=== PATIENT | male | born 1980 | race African-American/Black ===

== ENCOUNTER 2019-04-17 15:40 | Emergency (ER) | payer MEDICARE, OTHER ==
[~2019-04-17] VITALS: Ht 177.8 cm; Wt 150.0 kg
[2019-04-17] MEDS ORDERED: HYDROCODONE/ACETAMINOPHEN 5/325MG TABLET PO ONE (18:00)
[2019-04-17] MEDS ORDERED: IBUPROFEN 600MG TABLET PO ONE (18:00)
[2019-04-17 19:37] VITALS: BP 159/84
== END 2019-04-17 20:30 | disposition home or self-care (01) ==
LOC: ER 15:40
DX: M25.562 Pain in left knee (principal); I10 Essential (primary) hypertension; F20.9 Schizophrenia, unspecified; Z86.718 Personal history of other venous thrombosis and embolism; Z98.890 Other specified postprocedural states
CPT/HCPCS: 73502; 73560; 93970; 99284

== ENCOUNTER 2019-06-07 15:00 | Emergency (ER) | payer MEDICARE, OTHER ==
[~2019-06-07] VITALS: Ht 167.6 cm; Wt 98.0 kg
[2019-06-07] MEDS ORDERED: BACITRACIN ZINC OINT UDPKT TOP ONE (15:30)
[2019-06-07 17:14] VITALS: BP 183/82
== END 2019-06-07 18:53 | disposition home or self-care (01) ==
LOC: ER 15:29
DX: L97.829 Non-pressure chronic ulcer of other part of left lower leg with unspecified severity (principal); I10 Essential (primary) hypertension; Z86.718 Personal history of other venous thrombosis and embolism; Z96.659 Presence of unspecified artificial knee joint
CPT/HCPCS: 99283

== ENCOUNTER 2021-11-27 10:20 | Emergency (ER) | payer MEDICARE, MEDICAID ==
[~2021-11-27] VITALS: Ht 177.8 cm; Wt 100.0 kg
[2021-11-27 12:03] LABS: CLARITY URINE CLEAR (CLEAR); COLOR URINE DARK YELLOW (YELLOW); KETONES URINE TRACE (NEGATIVE); LEUKOCYTE ESTERASE URINE 2+ (NEGATIVE); NITRITE URINE NEGATIVE (NEGATIVE); OCCULT BLOOD URINE TRACE (NEGATIVE); PH URINE 5.5 (4.5-8.0); PROTEIN URINE 1+ (NEGATIVE); SPECIFIC GRAVITY URINE 1.023 (1.005-1.030)
[2021-11-27 12:24] VITALS: BP 122/57
[2021-11-27] MEDS ORDERED: LEVO250T43 PO (12:28)
[2021-11-27] MEDS ORDERED: LEVOFLOXACIN 250MG TABLET PO ONE (12:30)
== END 2021-11-27 13:08 | disposition home or self-care (01) ==
LOC: ER 10:20
DX: N39.0 Urinary tract infection, site not specified (principal); I10 Essential (primary) hypertension; F20.9 Schizophrenia, unspecified; Z86.718 Personal history of other venous thrombosis and embolism; Z96.659 Presence of unspecified artificial knee joint; Z79.01 Long term (current) use of anticoagulants
CPT/HCPCS: 76770; 81003; 99284

== ENCOUNTER 2022-07-13 19:50 | Emergency (ER) | payer MEDICARE, MEDICAID ==
[~2022-07-13] VITALS: Ht 177.8 cm; Wt 110.0 kg
[~2022-07-13 19:50] MED LIST: LEVO250T74 PO
[2022-07-13 20:36] VITALS: BP 124/61
[2022-07-13] MEDS ORDERED: ACETAMINOPHEN 325MG TABLET PO ONE (21:15)
[2022-07-13] MEDS ORDERED: ACET-2708 MT (22:49)
== END 2022-07-13 22:50 | disposition home or self-care (01) ==
LOC: ER 19:50
DX: I89.0 Lymphedema, not elsewhere classified (principal); M79.671 Pain in right foot; E11.9 Type 2 diabetes mellitus without complications; K21.9 Gastro-esophageal reflux disease without esophagitis; E78.00 Pure hypercholesterolemia, unspecified; I10 Essential (primary) hypertension
CPT/HCPCS: 73630; 93970; 99284

== ENCOUNTER 2023-08-29 13:56 | Emergency (ER) | payer MEDICARE, MEDICAID ==
[~2023-08-29] VITALS: Ht 175.3 cm; Wt 113.0 kg
[~2023-08-29 13:56] MED LIST changes: +ACET-2708 MT
[2023-08-29 14:10] VITALS: O2SAT 100
[2023-08-29] MEDS: IBUPROFEN 600MG TABLET PO ONE (16:30)
[2023-08-29 17:17] VITALS: BP 115/40; PULSE 64; RESP 16; TEMP 97.7
== END 2023-08-29 17:37 | disposition home or self-care (01) ==
LOC: ER 13:56
DX: S92.352A Displaced fracture of fifth metatarsal bone, left foot, initial encounter for closed fracture (principal); I10 Essential (primary) hypertension; E78.00 Pure hypercholesterolemia, unspecified; E11.9 Type 2 diabetes mellitus without complications; X58.XXXA Exposure to other specified factors, initial encounter; Y93.89 Activity, other specified; Y92.89 Other specified places as the place of occurrence of the external cause; Y99.8 Other external cause status
CPT/HCPCS: 73630; 93971; 99284